=== PATIENT | male | born 1950 | race Caucasian/White ===

== ENCOUNTER 2018-07-29 05:20 | Inpatient (IN) ==
[2018-07-21 11:46] LABS: Basophils # 0.1 10*3/uL (0.0-0.2); Basophils % 0.9 % (0.0-0.8); Eosinophils # 1.1 10*3/uL (0.0-0.87); Hematocrit 43.4 VOL% (42.0-52.0); Hemoglobin 14.4 GM/DL (14.0-18.0); Immature Granulocytes % 0.3 %; Immature Granulocytes Absolute 0.02 #; Lymphocytes # 2.1 10*3/uL (1.4-4.0); Lymphocytes % 26.8 % (21.2-54.2); Mean Corpuscular HGB Conc 33.2 GM/DL (32-36); Mean Corpuscular Hemoglobin 31 PG (27-34); Mean Corpuscular Volume 93.9 FL (87-102); Mean Platelet Volume 10.3 FL (9.6-12.0); Monocytes # 0.6 10*3/uL (0.11-0.8); Monocytes % 7.7 % (1.7-12.7); Neutrophils # 3.9 10*3/uL (1.4-7.4); Neutrophils % 50.3 % (38.7-73.9); Platelet Count 178 T/CUMM (130-400); Red Blood Count 4.62 MC/CUMM (3.8-5.5); Red Cell Distribution Width 12.3 % (9.3-17.3); White Blood Count 7.7 T/CUMM (4-12)
[2018-07-21 11:54] LABS: PT Patient Result 10.7 SECS; Partial Thromboplastin Time 28.9 SECS (0-40)
[2018-07-21 12:09] LABS: Eosinophils 17 % (0-10); Hypochromasia 1+; Lymphocytes 24 % (20-55); Platelet Estimate Normal; Segmented Neutrophils 55 % (50-85); Total Cells Counted 100
[2018-07-21 12:35] LABS: Apearance,Urine CLEAR (Clear); Bilirubin,Urine Negative (Negative); Blood, Urine Negative (Negative); Glucose,Urine (UA) 150 mg/dL (Negative); Ketones,Urine Negative (Negative); Mucus,Urine Occasional /LPF (Occasional); Nitrite,Urine Negative (Negative); Protein,Urine Negative; RBC,Urine 1 /HPF (0-4); Urine Color Yellow (Yellow); Urine Urobilinogen < 2.0 EU/DL (0.2-1.0); WBC,Urine 2 /HPF (0-6)
[2018-07-21 13:34] LABS: Albumin 3.9 G/DL (3.4-5.0); Bilirubin,Total 0.5 MG/DL (0.2-1.0); Calcium 9.1 MG/DL (8.5-10.1); Osmolality,Calculated 281.4 MOS/KG (273-304); Potassium 4.2 MMOL/L (3.5-5.1); Total Protein 7.5 G/DL (6.4-8.3)
[2018-07-29] MEDS ORDERED: ceFAZolin 1,000 MG in SYRINGE 1 EACH IV ONE (06:00)
[2018-07-29] MEDS ORDERED: VANCOMYCIN INJ 1,000 MG in SODIUM CHLORIDE 0.9% 250 ML IV ONE (06:00)
[2018-07-29] MEDS ORDERED: ROPIVACAINE 0.5% 30 ML VIAL ONE (06:02)
[2018-07-29] MEDS ORDERED: DEXAMETHASONE 10 MG/1 ML VIAL ONE (06:02)
[2018-07-29] MEDS ORDERED: VANCOMYCIN 1,000 MG VIAL ONE (06:19)
[2018-07-29] MEDS ORDERED: ceFAZolin 1,000 MG VIAL ONE (06:19)
[2018-07-29] MEDS: LACTATED RINGERS 1,000 ML IV SCH ×2 (06:32→09:30)
[2018-07-29] MEDS ORDERED: MAGNESIUM HYDROXIDE SUSP 30 ML UDCUP PO PRN (07:23)
[2018-07-29] MEDS ORDERED: LACTULOSE 20 GM/30 ML UDCUP PO PRN (07:23)
[2018-07-29] MEDS ORDERED: MORPHINE 4 MG/1 ML VIAL IV PRN ×2 (07:23→10:40)
[2018-07-29] MEDS ORDERED: PROMETHAZINE 25 MG/1 ML VIAL IM PRN (07:23)
[2018-07-29] MEDS ORDERED: ONDANSETRON 4 MG/2 ML VIAL IV PRN (07:23)
[2018-07-29] MEDS ORDERED: NITROGLYCERIN SL 0.4 MG TABLET SL PRN (07:26)
[2018-07-29] MEDS ORDERED: DEXTROSE 50% 25 GM/50 ML VIAL IV PRN (07:27)
[2018-07-29] MEDS ORDERED: GLUCAGON 1 MG VIAL IM PRN (07:27)
[2018-07-29] MEDS ORDERED: PHENYLEPHRINE 10 MG/1 ML VIAL IV ONE (09:59)
[2018-07-29] MEDS ORDERED: DESFLURANE 1 UNIT/15 MINUTE INH ONE (09:59)
[2018-07-29] MEDS ORDERED: ROCURONIUM 100 MG/10 ML VIAL IV ONE (09:59)
[2018-07-29] MEDS ORDERED: PHENYLEPHRINE 1 MG/10 ML SYRINGE IV ONE (09:59)
[2018-07-29] MEDS ORDERED: NEOSTIGMINE 10 MG/10 ML VIAL ONE (09:59)
[2018-07-29] MEDS ORDERED: PROPOFOL 200 MG/20 ML VIAL IV ONE (09:59)
[2018-07-29] MEDS ORDERED: ONDANSETRON 4 MG/2 ML VIAL ONE (09:59)
[2018-07-29] MEDS ORDERED: MIDAZOLAM 2 MG/2 ML VIAL ONE (09:59)
[2018-07-29] MEDS ORDERED: GLYCOPYRROLATE 0.4 MG/2 ML VIAL ONE (09:59)
[2018-07-29] MEDS ORDERED: fentaNYL 100 MCG/2 ML VIAL ONE (09:59)
[2018-07-29] MEDS ORDERED: SODIUM CHLORIDE 0.9% 250 ML IV ONE (09:59)
[2018-07-29] MEDS: INSULIN REGULAR 100 UNIT/ML SUBCUT SCH ×4 (10:45→20:40)
[2018-07-29] MEDS: ASPIRIN EC 81 MG TABLET PO SCH (10:46)
[2018-07-29] MEDS: MORPHINE ER 15 MG TABLET PO SCH ×2 (10:46→20:39)
[2018-07-29] MEDS: MELOXICAM 7.5 MG TABLET PO SCH (10:46)
[2018-07-29] MEDS: ISOSORBIDE MONONITRATE 60 MG TABLET PO SCH (10:46)
[2018-07-29] MEDS: BACLOFEN 10 MG TABLET PO SCH ×2 (10:46→20:39)
[2018-07-29] MEDS: amLODIPine 5 MG TABLET PO SCH (10:47)
[2018-07-29] MEDS: METOPROLOL SUCCINATE XL 50 MG TABLET PO SCH ×2 (10:47→20:39)
[2018-07-29] MEDS: GABAPENTIN 300 MG CAPSULE PO SCH ×2 (10:47→20:38)
[2018-07-29] MEDS: ceFAZolin 1,000 MG in SYRINGE 1 EACH IV SCH (17:10)
[2018-07-29] MEDS ORDERED: ZALEPLON 5 MG CAPSULE PO SCH (21:00)
[2018-07-29] MEDS ORDERED: CETIRIZINE 10 MG TABLET PO SCH (21:00)
[2018-07-29] MEDS ORDERED: DULoxetine 30 MG CAPSULE PO SCH (21:00)
[2018-07-29] MEDS ORDERED: ATORVASTATIN 40 MG TABLET PO SCH (21:00)
[2018-07-30] MEDS: ceFAZolin 1,000 MG in SYRINGE 1 EACH IV SCH (01:20)
[2018-07-30] MEDS ORDERED: ceFAZolin 1,000 MG in SYRINGE 1 EACH IV SCH (01:45)
[2018-07-30] MEDS: MORPHINE ER 15 MG TABLET PO SCH (09:36)
[2018-07-30] MEDS: MELOXICAM 7.5 MG TABLET PO SCH (09:37)
[2018-07-30] MEDS: ISOSORBIDE MONONITRATE 60 MG TABLET PO SCH (09:37)
[2018-07-30] MEDS: METOPROLOL SUCCINATE XL 50 MG TABLET PO SCH (09:37)
[2018-07-30] MEDS: GABAPENTIN 300 MG CAPSULE PO SCH (09:38)
[2018-07-30] MEDS: ASPIRIN EC 81 MG TABLET PO SCH (09:38)
[2018-07-30] MEDS: BACLOFEN 10 MG TABLET PO SCH (09:38)
[2018-07-30] MEDS: amLODIPine 5 MG TABLET PO SCH (09:39)
[2018-07-30] MEDS: INSULIN REGULAR 100 UNIT/ML SUBCUT SCH ×2 (09:40→12:36)
[2018-07-30 10:59] VITALS: BP 158/86
== END 2018-07-30 12:25 | disposition home or self-care (01) | DRG 483 ==
LOC: N.SDSINP 05:20 → N.3E 10:23
PROVIDERS: ADMIT Orthopaedic Surgery; ATTEND Orthopaedic Surgery

== ENCOUNTER 2019-04-26 08:33 | Inpatient (IN) ==
[~2019-04-26 08:33] MED LIST: CEFUROXIME INJ 1,500 MG in SYRINGE 1 EACH IV ONE; DEXTROSE 10% 25 GM/250 ML BAG IV PRN; GLUCAGON 1 MG VIAL IM PRN; NITROGLYCERIN SL 0.4 MG TABLET SL PRN; SODIUM CHLORIDE 0.9% 1,000 ML IV SCH
[2019-04-26] MEDS ORDERED: CHLORHEXIDINE 4% SOLN 118 ML BOTTLE TOP SCH (09:00)
[2019-04-26 09:40] LABS: Basophils # 0.1 10*3/uL (0.0-0.2); Basophils % 0.8 % (0.0-0.8); Eosinophils % 12.4 % (0.00-10.9); Hematocrit 43.5 VOL% (42.0-52.0); Hemoglobin 14.4 GM/DL (14.0-18.0); Immature Granulocytes % 0.5 %; Immature Granulocytes Absolute 0.04 #; Lymphocytes # 1.8 10*3/uL (1.4-4.0); Lymphocytes % 23.3 % (21.2-54.2); Mean Corpuscular HGB Conc 33.1 GM/DL (32-36); Mean Corpuscular Volume 93.1 FL (87-102); Mean Platelet Volume 10.3 FL (9.6-12.0); Monocytes % 9.5 % (1.7-12.7); Neutrophils % 53.5 % (38.7-73.9); Platelet Count 169 T/CUMM (130-400); Red Blood Count 4.67 MC/CUMM (3.8-5.5); White Blood Count 7.9 T/CUMM (4-12)
[2019-04-26 10:10] LABS: Albumin 3.7 G/DL (3.4-5.0); Bilirubin,Total 0.8 MG/DL (0.2-1.0); Calcium 9.2 MG/DL (8.5-10.1); Osmolality,Calculated 288.3 MOS/KG (273-304); Total Protein 7.3 G/DL (6.4-8.3)
[2019-04-26] MEDS: ASPIRIN EC 81 MG TABLET PO SCH (10:17)
[2019-04-26] MEDS: ISOSORBIDE MONONITRATE 60 MG TABLET PO SCH (10:17)
[2019-04-26] MEDS: BACLOFEN 10 MG TABLET PO SCH ×2 (10:18→21:26)
[2019-04-26] MEDS: MORPHINE ER 15 MG TABLET PO SCH ×2 (10:18→21:25)
[2019-04-26] MEDS: MELOXICAM 7.5 MG TABLET PO SCH (10:18)
[2019-04-26] MEDS: GABAPENTIN 300 MG CAPSULE PO SCH ×2 (10:18→21:27)
[2019-04-26] MEDS: amLODIPine 5 MG TABLET PO SCH (10:18)
[2019-04-26] MEDS: METOPROLOL SUCCINATE XL 50 MG TABLET PO SCH ×2 (10:19→21:27)
[2019-04-26 10:29] LABS: Eosinophils 14 % (0-10); Lymphocytes 13 % (20-55)
[2019-04-26 10:30] LABS: Ovalocytes Few; Polychromasia Slight; Segmented Neutrophils 67 % (50-85); Total Cells Counted 100
[2019-04-26 10:31] LABS: Platelet Estimate Adequate
[2019-04-26] MEDS: CHLORHEXIDINE 0.12% ORAL RINSE 60 ML BOTTLE SWISH/SPIT SCH ×2 (10:53→21:27)
[2019-04-26 11:06] LABS: Allen Test Positive; Pt O2 Delivery Device Room Air
[2019-04-26 11:07] LABS: ABG Base Excess -0.1 MMOL/L (-2.5-2.5); ABG HCO3 24.2 MMOL/L (20-26); ABG Oxygen Saturation 92.6 % (95-100); ABG PCO2 44.8 MM HG (35-48); ABG PH 7.366 (7.35-7.45); ABG PO2 65.2 MM HG (80-95); ABG TCO2 22.2 MMOL/L (23-27)
[2019-04-26] MEDS: CHLORHEXIDINE 4% SOLN 118 ML BOTTLE TOP SCH ×2 (11:20→21:28)
[2019-04-26] MEDS: INSULIN REGULAR 100 UNIT/ML SUBCUT SCH ×3 (12:01→21:27)
[2019-04-26] MEDS ORDERED: ATORVASTATIN 40 MG TABLET PO SCH (21:00)
[2019-04-26] MEDS ORDERED: CETIRIZINE 10 MG TABLET PO SCH (21:00)
[2019-04-26] MEDS ORDERED: DULoxetine 30 MG CAPSULE PO SCH (21:00)
[2019-04-26] MEDS ORDERED: ZALEPLON 5 MG CAPSULE PO SCH (21:00)
[2019-04-27] MEDS ORDERED: PAPAVERINE 60 MG/2 ML VIAL ONE (04:20)
[2019-04-27] MEDS ORDERED: VANCOMYCIN 1,000 MG VIAL ONE (04:21)
[2019-04-27] MEDS: CHLORHEXIDINE 4% SOLN 118 ML BOTTLE TOP SCH ×2 (05:20→12:01)
[2019-04-27] MEDS: amLODIPine 5 MG TABLET PO SCH ×2 (05:32→13:33)
[2019-04-27] MEDS: METOPROLOL SUCCINATE XL 50 MG TABLET PO SCH ×2 (05:33→13:33)
[2019-04-27] MEDS: ISOSORBIDE MONONITRATE 60 MG TABLET PO SCH ×2 (05:33→13:32)
[2019-04-27] MEDS ORDERED: HEPARIN/NACL 0.9% 2 UNITS/ML 500 ML IV ONE (05:38)
[2019-04-27] MEDS ORDERED: CALCIUM CHLORIDE 1,000 MG/10 ML VIAL IV ONE (05:38)
[2019-04-27] MEDS ORDERED: PHENYLEPHRINE DRIP 20 MG/250 ML PREMIX IV ONE (05:38)
[2019-04-27] MEDS ORDERED: SUFentanil 250 MCG/5 ML AMP ONE (05:39)
[2019-04-27] MEDS ORDERED: ePHEDrine 50 MG/ML AMP ONE (05:39)
[2019-04-27] MEDS ORDERED: MIDAZOLAM 10 MG/2 ML VIAL ONE ×2 (05:39)
[2019-04-27] MEDS ORDERED: ETOMIDATE 40 MG/20 ML VIAL IV ONE (05:40)
[2019-04-27] MEDS ORDERED: VECURONIUM 10 MG VIAL IV ONE (05:40)
[2019-04-27] MEDS ORDERED: SODIUM CHLORIDE 0.9% 250 ML IV ONE (05:40)
[2019-04-27] MEDS ORDERED: AMINOCAPROIC ACID 5,000 MG/20 ML VIAL ONE (05:40)
[2019-04-27] MEDS ORDERED: NITROGLYCERIN DRIP 0 MG/0 ML BOTTLE IV ONE (05:40)
[2019-04-27] MEDS ORDERED: SODIUM CHLORIDE 0.9% 1,000 ML IV ONE (05:40)
[2019-04-27] MEDS ORDERED: LACTATED RINGERS 1,000 ML IV ONE (05:40)
[2019-04-27] MEDS ORDERED: DIAZEPAM 5 MG TABLET PO ONE (06:00)
[2019-04-27] MEDS ORDERED: SODIUM CHLORIDE 0.9% 1,000 ML IV SCH (06:00)
[2019-04-27] MEDS ORDERED: FAMOTIDINE 20 MG TABLET PO ONE (06:00)
[2019-04-27 06:07] LABS: Basophils # 0.1 10*3/uL (0.0-0.2); Basophils % 0.8 % (0.0-0.8); Eosinophils # 0.8 10*3/uL (0.0-0.87); Eosinophils % 10.8 % (0.00-10.9); Hematocrit 43.5 VOL% (42.0-52.0); Hemoglobin 14.5 GM/DL (14.0-18.0); Immature Granulocytes % 0.4 %; Immature Granulocytes Absolute 0.03 #; Lymphocytes # 1.7 10*3/uL (1.4-4.0); Lymphocytes % 22.3 % (21.2-54.2); Mean Corpuscular HGB Conc 33.3 GM/DL (32-36); Mean Platelet Volume 10.1 FL (9.6-12.0); Monocytes % 9.5 % (1.7-12.7); Neutrophils % 56.2 % (38.7-73.9); Platelet Count 151 T/CUMM (130-400); Red Blood Count 4.73 MC/CUMM (3.8-5.5); Red Cell Distribution Width 12.9 % (9.3-17.3); White Blood Count 7.6 T/CUMM (4-12)
[2019-04-27 06:16] LABS: PT Patient Result 10.9 SECS
[2019-04-27] MEDS ORDERED: CEFUROXIME INJ 1,500 MG in SYRINGE 1 EACH IV ONE ×2 (06:30→10:00)
[2019-04-27 06:36] LABS: Albumin 3.5 G/DL (3.4-5.0); Bilirubin,Total 0.8 MG/DL (0.2-1.0); Calcium 8.9 MG/DL (8.5-10.1); Osmolality,Calculated 282.4 MOS/KG (273-304); Total Protein 7.1 G/DL (6.4-8.3)
[2019-04-27 07:47] LABS: ABG Base Excess -0.6 MMOL/L (-2.5-2.5); ABG Oxygen Saturation 99.8 % (95-100); ABG PCO2 42.1 MM HG (35-48); ABG PH 7.376 (7.35-7.45); ABG TCO2 21.3 MMOL/L (23-27); Glucose Heart Surgery 152 MG/DL (74-106); Hematocrit Heart Surgery 43.5 PERCENT (42-52); Hemoglobin Heart Surgery 14.2 G/DL (14.0-18.0); Ionized Calcium Arterial 1.15 MMOL/L (1.21-1.46); PCO2 Patient Temp Arterial 42.1 MMHG; PH Patient Temp Arterial 7.376; Patient Temperature 37 CELCIUS; Potassium Heart/CVR 3.9 MMOL/L (3.5-5.1); Sodium Heart/CVR 139 MMOL/L (135-145)
[2019-04-27 07:57] LABS: Eosinophils 11 % (0-10); Hypochromasia Slight; Lymphocytes 23 % (20-55); Segmented Neutrophils 59 % (50-85); Total Cells Counted 100
[2019-04-27 07:58] LABS: Microcytosis Slight; Platelet Estimate Adequate
[2019-04-27 08:13] LABS: Apearance,Urine Slightly Hazy (Clear); Bacteria,Urine Many /HPF (Few); Bilirubin,Urine Negative (Negative); Blood, Urine Moderate mg/dL (Negative); Glucose,Urine (UA) Negative (Negative); Ketones,Urine Negative (Negative); Mucus,Urine Occasional /LPF (Occasional); Nitrite,Urine Negative (Negative); Protein,Urine Negative; RBC,Urine 6 /HPF (0-4); Squamous Epithelial Cell,Urine Few /HPF (0-10); Urine Color Yellow (Yellow); Urine Specific Gravity 1.016 (1.001-1.035); Urine Urobilinogen < 2.0 EU/DL (0.2-1.0); WBC,Urine 62 /HPF (0-6)
[2019-04-27 09:14] LABS: Hematocrit Heart Surgery 31.5 PERCENT (42-52); Hemoglobin Heart Surgery 10.2 G/DL (14.0-18.0); PCO2 Patient Temp Venous 40.7 MM HG; PH Patient Temp Venous 7.418; PO2 Patient Temp Venous 39.4 MM HG; Potassium Heart/CVR 4.6 MMOL/L (3.5-5.1); VBG Base Excess 1.7 MEQ/L (0-4); VBG HCO3 25.7 MEQ/L (24-28); VBG Oxygen Saturation 82.6 %; VBG PCO2 44.9 MMHG (41-51); VBG PH 7.389; VBG PO2 45.3 MMHG (17-40)
[2019-04-27] MEDS ORDERED: NITROPRUSSIDE 50 MG/2 ML VIAL ONE ×2 (09:29→09:35)
[2019-04-27] MEDS ORDERED: PHENYLEPHRINE DRIP 40 MG/250 ML PREMIX IV ONE (09:29)
[2019-04-27] MEDS ORDERED: ALBUMIN 5% 12.5 GM/250 ML VIAL IV ONE (09:29)
[2019-04-27 09:45] LABS: Hematocrit Heart Surgery 39.1 PERCENT (42-52); Hemoglobin Heart Surgery 12.7 G/DL (14.0-18.0); PCO2 Patient Temp Venous 33.8 MM HG; PH Patient Temp Venous 7.463; PO2 Patient Temp Venous 40.7 MM HG; Potassium Heart/CVR 4.6 MMOL/L (3.5-5.1); VBG Base Excess 0.9 MEQ/L (0-4); VBG HCO3 24.9 MEQ/L (24-28); VBG PH 7.419; VBG PO2 50.1 MMHG (17-40)
[2019-04-27 10:22] LABS: Hematocrit Heart Surgery 35.3 PERCENT (42-52); Hemoglobin Heart Surgery 11.5 G/DL (14.0-18.0); PCO2 Patient Temp Venous 33.9 MM HG; PH Patient Temp Venous 7.456; PO2 Patient Temp Venous 38.3 MM HG; Potassium Heart/CVR 4.8 MMOL/L (3.5-5.1); VBG Base Excess 0.5 MEQ/L (0-4); VBG HCO3 24.5 MEQ/L (24-28); VBG Oxygen Saturation 80.3 %; VBG PCO2 35.6 MMHG (41-51); VBG PH 7.441
[2019-04-27] MEDS ORDERED: MANNITOL 100 GM/500 ML BAG IV ONE (10:46)
[2019-04-27] MEDS ORDERED: MAGNESIUM SULFATE 5 GM/10 ML VIAL IV ONE (10:47)
[2019-04-27] MEDS ORDERED: HEPARIN 10,000 UNIT/10 ML VIAL ONE ×2 (10:47→11:51)
[2019-04-27] MEDS ORDERED: methylPREDNISolone SOD SUC 1,000 MG/8 ML VIAL ONE (10:47)
[2019-04-27] MEDS ORDERED: SODIUM BICARBONATE 50 MEQ/50 ML VIAL IV ONE (10:47)
[2019-04-27] MEDS ORDERED: PROTAMINE SULFATE 250 MG/25 ML VIAL IV ONE (10:47)
[2019-04-27] MEDS ORDERED: FUROSEMIDE 20 MG/2 ML VIAL ONE (10:47)
[2019-04-27] MEDS ORDERED: ALBUMIN 25% 25 GM/100 ML VIAL IV ONE (10:47)
[2019-04-27] MEDS ORDERED: DEXTROSE 5% KCL 20 MEQ 20 MEQ/1,000 ML BAG IV ONE (10:47)
[2019-04-27] MEDS ORDERED: PROTAMINE SULFATE 50 MG/5 ML VIAL IV ONE ×2 (10:48→12:05)
[2019-04-27 10:59] LABS: ABG Base Excess -1.9 MMOL/L (-2.5-2.5); ABG HCO3 22.9 MMOL/L (20-26); ABG Oxygen Saturation 99.2 % (95-100); ABG PCO2 40.1 MM HG (35-48); ABG TCO2 20.6 MMOL/L (23-27); Glucose Heart Surgery 278 MG/DL (74-106); Hematocrit Heart Surgery 37.5 PERCENT (42-52); Hemoglobin Heart Surgery 12.2 G/DL (14.0-18.0); PCO2 Patient Temp Arterial 40.1 MMHG; Patient Temperature 37 CELCIUS; Potassium Heart/CVR 4.4 MMOL/L (3.5-5.1); Sodium Heart/CVR 133 MMOL/L (135-145)
[2019-04-27] MEDS: LACTATED RINGERS 1,000 ML IV PRN ×3 (11:40→19:07)
[2019-04-27] MEDS ORDERED: NITROGLYCERIN DRIP 50 MG/250 ML BOTTLE IV ONE (11:43)
[2019-04-27] MEDS ORDERED: INSULIN REGULAR 100 UNIT/ML IV ONE (11:53)
[2019-04-27] MEDS ORDERED: VECURONIUM 10 MG VIAL IV PRN ×2 (11:53)
[2019-04-27] MEDS ORDERED: ONDANSETRON 4 MG/2 ML VIAL IV PRN (11:53)
[2019-04-27] MEDS ORDERED: POTASSIUM CHLORIDE RIDER 10 MEQ in PREMIX 1 EACH IV PRN (11:53)
[2019-04-27] MEDS ORDERED: MAGNESIUM SULF RIDER 4 GM in PREMIX 1 EACH IV PRN (11:53)
[2019-04-27] MEDS ORDERED: NITROPRUSSIDE 100 MG in DEXTROSE 5% 250 ML IV PRN (11:53)
[2019-04-27] MEDS ORDERED: INSULIN REGULAR 100 UNIT/ML IV PRN (11:53)
[2019-04-27] MEDS ORDERED: MIDAZOLAM 2 MG/2 ML VIAL IV PRN (11:53)
[2019-04-27] MEDS ORDERED: ACETAMINOPHEN 650 MG SUPP RECTAL PRN (11:53)
[2019-04-27] MEDS ORDERED: MAGNESIUM SULF RIDER 2 GM in PREMIX 1 EACH IV PRN (11:53)
[2019-04-27] MEDS ORDERED: LACTATED RINGERS 250 ML IV PRN (11:53)
[2019-04-27] MEDS ORDERED: MIDAZOLAM 10 MG/2 ML VIAL IV PRN (11:53)
[2019-04-27] MEDS ORDERED: PHENYLEPHRINE DRIP 40 MG/250 ML PREMIX IV PRN (11:53)
[2019-04-27] MEDS ORDERED: DEXTROSE 50% 25 GM/50 ML VIAL IV PRN ×2 (11:53)
[2019-04-27] MEDS ORDERED: CALCIUM CHLORIDE 1,000 MG/10 ML SYRINGE IV PRN (11:53)
[2019-04-27] MEDS ORDERED: MORPHINE 10 MG/1 ML VIAL IV PRN (11:53)
[2019-04-27] MEDS ORDERED: INSULIN REGULAR DRIP 100 ML IV SCH (12:00)
[2019-04-27] MEDS ORDERED: SODIUM CHLORIDE 0.45% 1,000 ML IV SCH ×2 (12:00)
[2019-04-27 12:19] LABS: ABG Base Excess -3.2 MMOL/L (-2.5-2.5); ABG HCO3 21.8 MMOL/L (20-26); ABG Oxygen Saturation 98.6 % (95-100); ABG PCO2 46.5 MM HG (35-48); ABG TCO2 20.6 MMOL/L (23-27); Glucose Heart Surgery 255 MG/DL (74-106); Hematocrit Heart Surgery 41.7 PERCENT (42-52); Hemoglobin Heart Surgery 13.6 G/DL (14.0-18.0); Potassium Heart/CVR 3.6 MMOL/L (3.5-5.1)
[2019-04-27 12:21] LABS: Basophils % 0.2 % (0.0-0.8); Eosinophils # 0.1 10*3/uL (0.0-0.87); Hematocrit 37.9 VOL% (42.0-52.0); Hemoglobin 12.8 GM/DL (14.0-18.0); Immature Granulocytes % 0.4 %; Immature Granulocytes Absolute 0.04 #; Lymphocytes # 1.4 10*3/uL (1.4-4.0); Mean Corpuscular HGB Conc 33.8 GM/DL (32-36); Mean Corpuscular Volume 91.8 FL (87-102); Mean Platelet Volume 10.6 FL (9.6-12.0); Monocytes % 5.8 % (1.7-12.7); Neutrophils % 78.6 % (38.7-73.9); Platelet Count 121 T/CUMM (130-400); Red Blood Count 4.13 MC/CUMM (3.8-5.5); Red Cell Distribution Width 12.9 % (9.3-17.3); White Blood Count 9.9 T/CUMM (4-12)
[2019-04-27] MEDS: KETOROLAC 30 MG/1 ML VIAL IV SCH ×2 (12:22→19:01)
[2019-04-27 12:40] LABS: Albumin 2.7 G/DL (3.4-5.0); Bilirubin,Total 2.2 MG/DL (0.2-1.0); Calcium 8.2 MG/DL (8.5-10.1); Osmolality,Calculated 289.4 MOS/KG (273-304); Total Protein 5.1 G/DL (6.4-8.3)
[2019-04-27] MEDS: POTASSIUM CHLORIDE RIDER 20 MEQ in PREMIX 1 EACH IV PRN ×4 (12:45→21:28)
[2019-04-27 12:50] LABS: CKMB % 5.6 %
[2019-04-27 12:51] LABS: Troponin I 4.11 NG/ML (0.00-0.045)
[2019-04-27] MEDS: ALBUMIN 5% 12.5 GM in PREMIX 1 EACH IV PRN ×4 (12:52→21:25)
[2019-04-27 12:59] LABS: INR 1.5; PT Patient Result 16.6 SECS
[2019-04-27 13:14] LABS: ABG Base Excess -2.7 MMOL/L (-2.5-2.5); ABG HCO3 22.1 MMOL/L (20-26); ABG Oxygen Saturation 97.9 % (95-100); ABG PCO2 47.8 MM HG (35-48); ABG PH 7.309 (7.35-7.45); ABG TCO2 21.2 MMOL/L (23-27); Glucose Heart Surgery 227 MG/DL (74-106); Hematocrit Heart Surgery 40.2 PERCENT (42-52); Hemoglobin Heart Surgery 13.1 G/DL (14.0-18.0); Potassium Heart/CVR 3.4 MMOL/L (3.5-5.1)
[2019-04-27] MEDS: INSULIN REGULAR 100 UNIT/ML SUBCUT SCH ×2 (13:31→13:32)
[2019-04-27] MEDS: MORPHINE ER 15 MG TABLET PO SCH (13:32)
[2019-04-27] MEDS: ASPIRIN EC 81 MG TABLET PO SCH (13:32)
[2019-04-27] MEDS: BACLOFEN 10 MG TABLET PO SCH (13:32)
[2019-04-27] MEDS: MELOXICAM 7.5 MG TABLET PO SCH (13:32)
[2019-04-27] MEDS: CHLORHEXIDINE 0.12% ORAL RINSE 60 ML BOTTLE SWISH/SPIT SCH ×2 (13:33→21:29)
[2019-04-27] MEDS: GABAPENTIN 300 MG CAPSULE PO SCH (13:33)
[2019-04-27 14:15] LABS: ABG Base Excess -2.2 MMOL/L (-2.5-2.5); ABG HCO3 22.6 MMOL/L (20-26); ABG Oxygen Saturation 98.7 % (95-100); ABG PCO2 41.2 MM HG (35-48); ABG PH 7.358 (7.35-7.45); ABG TCO2 20.4 MMOL/L (23-27); Glucose Heart Surgery 193 MG/DL (74-106); Hematocrit Heart Surgery 39.6 PERCENT (42-52); Hemoglobin Heart Surgery 12.9 G/DL (14.0-18.0); Potassium Heart/CVR 4.5 MMOL/L (3.5-5.1)
[2019-04-27 15:17] LABS: ABG Base Excess -2.1 MMOL/L (-2.5-2.5); ABG HCO3 22.7 MMOL/L (20-26); ABG Oxygen Saturation 98.5 % (95-100); ABG PCO2 38.9 MM HG (35-48); ABG PH 7.376 (7.35-7.45); Glucose Heart Surgery 163 MG/DL (74-106)
[2019-04-27] MEDS ORDERED: SEVOFLURANE 1 UNIT/15 MINUTE INH ONE (15:26)
[2019-04-27 17:33] LABS: ABG Base Excess -2.1 MMOL/L (-2.5-2.5); ABG HCO3 22.6 MMOL/L (20-26); ABG Oxygen Saturation 96.6 % (95-100); ABG PCO2 38.1 MM HG (35-48); ABG PH 7.382 (7.35-7.45); ABG PO2 83.7 MM HG (80-95); Glucose Heart Surgery 178 MG/DL (74-106); Hematocrit Heart Surgery 37.7 PERCENT (42-52); Hemoglobin Heart Surgery 12.3 G/DL (14.0-18.0); Potassium Heart/CVR 4.2 MMOL/L (3.5-5.1)
[2019-04-27] MEDS ORDERED: FUROSEMIDE 40 MG/4 ML VIAL IV PRN (18:51)
[2019-04-27] MEDS: CEFUROXIME INJ 1,500 MG in SYRINGE 1 EACH IV SCH (20:07)
[2019-04-27 20:27] LABS: ABG Base Excess -2.2 MMOL/L (-2.5-2.5); ABG HCO3 22.6 MMOL/L (20-26); ABG Oxygen Saturation 96.1 % (95-100); ABG PCO2 37.2 MM HG (35-48); ABG PH 7.388 (7.35-7.45); ABG PO2 78.4 MM HG (80-95); ABG TCO2 20.2 MMOL/L (23-27); Glucose Heart Surgery 169 MG/DL (74-106); Hematocrit Heart Surgery 33.6 PERCENT (42-52); Hemoglobin Heart Surgery 10.9 G/DL (14.0-18.0); Potassium Heart/CVR 4.2 MMOL/L (3.5-5.1)
[2019-04-27 20:52] LABS: CKMB % 3.9 %
[2019-04-27] MEDS: MORPHINE 4 MG/1 ML VIAL IV PRN (20:53)
[2019-04-27 20:56] LABS: Troponin I 1.73 NG/ML (0.00-0.045)
[2019-04-28 00:22] LABS: ABG HCO3 22.7 MMOL/L (20-26); ABG Oxygen Saturation 95.5 % (95-100); ABG PCO2 34.7 MM HG (35-48); ABG PH 7.434 (7.35-7.45); ABG PO2 79.2 MM HG (80-95); ABG TCO2 23.8 MMOL/L (23-27); Glucose Heart Surgery 156 MG/DL (74-106); Hemoglobin Heart Surgery 11.7 G/DL (14.0-18.0); Potassium Heart/CVR 4.5 MMOL/L (3.5-5.1)
[2019-04-28] MEDS: KETOROLAC 30 MG/1 ML VIAL IV SCH ×5 (01:07→22:42)
[2019-04-28 01:18] LABS: ABG Base Excess 0.3 MMOL/L (-2.5-2.5); ABG HCO3 24.7 MMOL/L (20-26); ABG Oxygen Saturation 96.8 % (95-100); ABG PCO2 32.9 MM HG (35-48); ABG PH 7.462 (7.35-7.45); ABG PO2 75.5 MM HG (80-95); ABG TCO2 20.9 MMOL/L (23-27); Glucose Heart Surgery 159 MG/DL (74-106); Hematocrit Heart Surgery 34.8 PERCENT (42-52); Hemoglobin Heart Surgery 11.3 G/DL (14.0-18.0); Potassium Heart/CVR 4.3 MMOL/L (3.5-5.1)
[2019-04-28] MEDS: MORPHINE 4 MG/1 ML VIAL IV PRN (01:18)
[2019-04-28 01:59] LABS: ABG Base Excess -0.3 MMOL/L (-2.5-2.5); ABG HCO3 24.1 MMOL/L (20-26); ABG Oxygen Saturation 97.1 % (95-100); ABG PCO2 33.6 MM HG (35-48); ABG PH 7.445 (7.35-7.45); ABG PO2 79.9 MM HG (80-95); ABG TCO2 20.5 MMOL/L (23-27); Glucose Heart Surgery 155 MG/DL (74-106); Hematocrit Heart Surgery 35.7 PERCENT (42-52); Hemoglobin Heart Surgery 11.6 G/DL (14.0-18.0); Potassium Heart/CVR 4.1 MMOL/L (3.5-5.1)
[2019-04-28 03:52] LABS: ABG Base Excess 0.9 MMOL/L (-2.5-2.5); ABG HCO3 25.2 MMOL/L (20-26); ABG Oxygen Saturation 95.2 % (95-100); ABG PCO2 40.7 MM HG (35-48); ABG PH 7.407 (7.35-7.45); ABG PO2 71.2 MM HG (80-95); ABG TCO2 22.9 MMOL/L (23-27); Glucose Heart Surgery 144 MG/DL (74-106); Hematocrit Heart Surgery 35.4 PERCENT (42-52); Hemoglobin Heart Surgery 11.5 G/DL (14.0-18.0); Potassium Heart/CVR 4.1 MMOL/L (3.5-5.1)
[2019-04-28 03:55] LABS: Basophils # 0.1 10*3/uL (0.0-0.2); Basophils % 0.3 % (0.0-0.8); Eosinophils % 0.1 % (0.00-10.9); Hematocrit 32.9 VOL% (42.0-52.0); Immature Granulocytes % 0.4 %; Immature Granulocytes Absolute 0.08 #; Lymphocytes # 1.4 10*3/uL (1.4-4.0); Lymphocytes % 7.4 % (21.2-54.2); Mean Corpuscular HGB Conc 33.4 GM/DL (32-36); Mean Corpuscular Volume 92.9 FL (87-102); Mean Platelet Volume 11.2 FL (9.6-12.0); Monocytes % 5.5 % (1.7-12.7); Neutrophils % 86.3 % (38.7-73.9); Platelet Count 95 T/CUMM (130-400); Red Blood Count 3.54 MC/CUMM (3.8-5.5); Red Cell Distribution Width 13.2 % (9.3-17.3); White Blood Count 18.4 T/CUMM (4-12)
[2019-04-28 04:16] LABS: Albumin 3.3 G/DL (3.4-5.0); Bilirubin,Direct 0.32 MG/DL (0.0-0.20); Bilirubin,Total 1.3 MG/DL (0.2-1.0); CKMB % 2.3 %; Calcium 8.1 MG/DL (8.5-10.1); Osmolality,Calculated 289.8 MOS/KG (273-304); Total Protein 5.8 G/DL (6.4-8.3)
[2019-04-28 04:17] LABS: Troponin I 1.5 NG/ML (0.00-0.045)
[2019-04-28] MEDS: POTASSIUM CHLORIDE RIDER 20 MEQ in PREMIX 1 EACH IV PRN (05:06)
[2019-04-28 05:21] LABS: Microcytosis Slight; Platelet Estimate Decreased
[2019-04-28 06:10] LABS: ABG Base Excess 1.5 MMOL/L (-2.5-2.5); ABG HCO3 25.9 MMOL/L (20-26); ABG Oxygen Saturation 92.9 % (95-100); ABG PCO2 40.3 MM HG (35-48); ABG PH 7.426 (7.35-7.45); ABG PO2 67.2 MM HG (80-95); ABG TCO2 27.1 MMOL/L (23-27); Glucose Heart Surgery 140 MG/DL (74-106); Hemoglobin Heart Surgery 12.3 G/DL (14.0-18.0); Potassium Heart/CVR 4.3 MMOL/L (3.5-5.1)
[2019-04-28 08:24] LABS: ABG Base Excess 0.8 MMOL/L (-2.5-2.5); ABG HCO3 25.1 MMOL/L (20-26); ABG Oxygen Saturation 95.9 % (95-100); ABG PCO2 38.8 MM HG (35-48); ABG PO2 77.3 MM HG (80-95); ABG TCO2 22.4 MMOL/L (23-27); Glucose Heart Surgery 146 MG/DL (74-106); Hematocrit Heart Surgery 35.8 PERCENT (42-52); Hemoglobin Heart Surgery 11.6 G/DL (14.0-18.0); Potassium Heart/CVR 4.1 MMOL/L (3.5-5.1)
[2019-04-28] MEDS: CEFUROXIME INJ 1,500 MG in SYRINGE 1 EACH IV SCH (08:35)
[2019-04-28] MEDS: ISOSORBIDE MONONITRATE 60 MG TABLET PO SCH (08:47)
[2019-04-28] MEDS: METOPROLOL SUCCINATE XL 50 MG TABLET PO SCH ×2 (08:47→21:10)
[2019-04-28] MEDS: GABAPENTIN 300 MG CAPSULE PO SCH ×2 (08:47→21:10)
[2019-04-28] MEDS: ASPIRIN EC 81 MG TABLET PO SCH (08:47)
[2019-04-28] MEDS: BACLOFEN 10 MG TABLET PO SCH ×2 (08:47→21:10)
[2019-04-28] MEDS: MELOXICAM 7.5 MG TABLET PO SCH (08:47)
[2019-04-28] MEDS: CHLORHEXIDINE 0.12% ORAL RINSE 60 ML BOTTLE SWISH/SPIT SCH ×3 (09:24→21:06)
[2019-04-28] MEDS ORDERED: SODIUM CHLOR 0.45% KCL 20 MEQ 20 MEQ/1,000 ML BAG IV SCH (10:18)
[2019-04-28] MEDS ORDERED: oxyCODONE/ACETAMINOPHEN 5-325 MG TABLET PO PRN (10:18)
[2019-04-28] MEDS ORDERED: MORPHINE 4 MG/1 ML VIAL IV PRN (10:18)
[2019-04-28] MEDS ORDERED: ACETAMINOPHEN 325 MG TABLET PO PRN (10:18)
[2019-04-28] MEDS ORDERED: GLUCAGON 1 MG VIAL IM PRN ×2 (10:18)
[2019-04-28] MEDS ORDERED: DEXTROSE 50% 25 GM/50 ML VIAL IV PRN ×2 (10:18)
[2019-04-28] MEDS ORDERED: ONDANSETRON 4 MG/2 ML VIAL IV PRN (10:18)
[2019-04-28] MEDS ORDERED: ALUMINUM/MAGNES/SIMETH MAX STR 30 ML UDCUP PO PRN (10:18)
[2019-04-28] MEDS ORDERED: MAGNESIUM SULF RIDER 4 GM in PREMIX 1 EACH IV PRN (10:18)
[2019-04-28] MEDS ORDERED: MAGNESIUM HYDROXIDE SUSP 30 ML UDCUP PO PRN (10:18)
[2019-04-28] MEDS ORDERED: MAGNESIUM SULF RIDER 2 GM in PREMIX 1 EACH IV PRN (10:18)
[2019-04-28] MEDS: LEVOFLOXACIN 500 MG TABLET PO SCH (11:28)
[2019-04-28] MEDS: FERROUS SULFATE 325 MG TABLET PO SCH (11:29)
[2019-04-28] MEDS: DOCUSATE SODIUM 100 MG CAPSULE PO SCH (11:29)
[2019-04-28] MEDS: PANTOPRAZOLE 40 MG TABLET PO SCH (11:29)
[2019-04-28] MEDS: INSULIN REGULAR 100 UNIT/ML SUBCUT SCH ×3 (12:51→21:03)
[2019-04-28] MEDS: DULoxetine 30 MG CAPSULE PO SCH (21:07)
[2019-04-28] MEDS: CETIRIZINE 10 MG TABLET PO SCH (21:09)
[2019-04-28] MEDS: ATORVASTATIN 40 MG TABLET PO SCH (21:09)
[2019-04-29] MEDS: INSULIN REGULAR 100 UNIT/ML SUBCUT SCH ×6 (00:34→22:03)
[2019-04-29] MEDS: KETOROLAC 30 MG/1 ML VIAL IV SCH ×4 (04:37→22:01)
[2019-04-29 04:47] LABS: Basophils % 0.1 % (0.0-0.8); Eosinophils % 0.1 % (0.00-10.9); Hematocrit 29.8 VOL% (42.0-52.0); Hemoglobin 10.1 GM/DL (14.0-18.0); Immature Granulocytes % 0.7 %; Immature Granulocytes Absolute 0.12 #; Lymphocytes # 2.1 10*3/uL (1.4-4.0); Lymphocytes % 11.4 % (21.2-54.2); Mean Corpuscular HGB Conc 33.9 GM/DL (32-36); Mean Corpuscular Volume 93.7 FL (87-102); Mean Platelet Volume 12.3 FL (9.6-12.0); Neutrophils % 77.7 % (38.7-73.9); Platelet Count 88 T/CUMM (130-400); Red Blood Count 3.18 MC/CUMM (3.8-5.5); Red Cell Distribution Width 13.4 % (9.3-17.3); White Blood Count 18.3 T/CUMM (4-12)
[2019-04-29 05:13] LABS: Calcium 8.4 MG/DL (8.5-10.1); Osmolality,Calculated 296.1 MOS/KG (273-304)
[2019-04-29 05:19] LABS: Albumin 3.1 G/DL (3.4-5.0); Bilirubin,Direct 0.15 MG/DL (0.0-0.20); Bilirubin,Indirect 0.7 MG/DL (0.0-1.0); Bilirubin,Total 0.8 MG/DL (0.2-1.0); CKMB % 0.6 %; Calcium 8.2 MG/DL (8.5-10.1); Osmolality,Calculated 294.3 MOS/KG (273-304); Total Protein 5.8 G/DL (6.4-8.3)
[2019-04-29 05:21] LABS: Troponin I 1.07 NG/ML (0.00-0.045)
[2019-04-29 06:00] LABS: Anisocytosis Slight; Lymphocytes 9 % (20-55); Segmented Neutrophils 84 % (50-85); Total Cells Counted 100
[2019-04-29] MEDS ORDERED: FUROSEMIDE 40 MG/4 ML VIAL IV ONE (06:00)
[2019-04-29 06:01] LABS: Microcytosis 1+; Platelet Estimate Decreased
[2019-04-29] MEDS: BACLOFEN 10 MG TABLET PO SCH ×2 (09:41→22:03)
[2019-04-29] MEDS: ASPIRIN EC 81 MG TABLET PO SCH (09:41)
[2019-04-29] MEDS: DOCUSATE SODIUM 100 MG CAPSULE PO SCH (09:41)
[2019-04-29] MEDS: GABAPENTIN 300 MG CAPSULE PO SCH ×2 (09:41→22:02)
[2019-04-29] MEDS: PANTOPRAZOLE 40 MG TABLET PO SCH (09:41)
[2019-04-29] MEDS: MORPHINE ER 15 MG TABLET PO SCH (09:41)
[2019-04-29] MEDS: ISOSORBIDE MONONITRATE 60 MG TABLET PO SCH (09:41)
[2019-04-29] MEDS: CHLORHEXIDINE 0.12% ORAL RINSE 60 ML BOTTLE SWISH/SPIT SCH ×2 (09:41→22:04)
[2019-04-29] MEDS: FERROUS SULFATE 325 MG TABLET PO SCH (09:41)
[2019-04-29] MEDS: MELOXICAM 7.5 MG TABLET PO SCH (09:41)
[2019-04-29] MEDS: METOPROLOL SUCCINATE XL 50 MG TABLET PO SCH ×2 (09:41→21:42)
[2019-04-29] MEDS: LEVOFLOXACIN 500 MG TABLET PO SCH (10:29)
[2019-04-29] MEDS ORDERED: amLODIPine 5 MG TABLET PO ONE (13:33)
[2019-04-29] MEDS ORDERED: HYDROmorphone 2 MG/1 ML VIAL IV PRN (17:53)
[2019-04-29] MEDS: DULoxetine 30 MG CAPSULE PO SCH (22:02)
[2019-04-29] MEDS: CETIRIZINE 10 MG TABLET PO SCH (22:03)
[2019-04-29] MEDS: ATORVASTATIN 40 MG TABLET PO SCH (22:03)
[2019-04-30] MEDS: INSULIN REGULAR 100 UNIT/ML SUBCUT SCH ×6 (00:46→21:30)
[2019-04-30] MEDS: KETOROLAC 30 MG/1 ML VIAL IV SCH ×4 (03:35→21:31)
[2019-04-30 04:32] LABS: Basophils % 0.2 % (0.0-0.8); Eosinophils # 0.3 10*3/uL (0.0-0.87); Eosinophils % 2.3 % (0.00-10.9); Hematocrit 26.2 VOL% (42.0-52.0); Hemoglobin 8.7 GM/DL (14.0-18.0); Immature Granulocytes % 0.8 %; Lymphocytes # 2.1 10*3/uL (1.4-4.0); Lymphocytes % 16.2 % (21.2-54.2); Mean Corpuscular HGB Conc 33.2 GM/DL (32-36); Mean Corpuscular Volume 95.3 FL (87-102); Mean Platelet Volume 11.7 FL (9.6-12.0); Monocytes % 9.5 % (1.7-12.7); Platelet Count 74 T/CUMM (130-400); Red Blood Count 2.75 MC/CUMM (3.8-5.5); Red Cell Distribution Width 13.5 % (9.3-17.3); White Blood Count 12.9 T/CUMM (4-12)
[2019-04-30 04:50] LABS: INR 1.1; PT Patient Result 11.5 SECS
[2019-04-30 04:57] LABS: Alanine Aminotransferase 34 U/L (16-61); Albumin 2.8 G/DL (3.4-5.0); Alkaline Phosphatase 53 U/L (45-117); Aspartate Amino Transferase 26 U/L (0-37); Bilirubin,Indirect 0.6 MG/DL (0.0-1.0); Blood Urea Nitrogen 39 MG/DL (7-18); Calcium 8.2 MG/DL (8.5-10.1); Glucose 104 MG/DL (74-106); Total Protein 5.5 G/DL (6.4-8.3)
[2019-04-30 05:01] LABS: Hypochromasia 1+; Platelet Estimate Decreased
[2019-04-30 05:02] LABS: Microcytosis Slight
[2019-04-30 05:07] LABS: Troponin I 0.508 NG/ML (0.00-0.045)
[2019-04-30] MEDS: POTASSIUM CHLORIDE 20 MEQ TABLET PO PRN (06:05)
[2019-04-30] MEDS ORDERED: amLODIPine 5 MG TABLET PO SCH (09:00)
[2019-04-30] MEDS: MORPHINE ER 15 MG TABLET PO SCH ×2 (09:16→21:31)
[2019-04-30] MEDS: MELOXICAM 7.5 MG TABLET PO SCH (09:17)
[2019-04-30] MEDS: ASPIRIN EC 81 MG TABLET PO SCH (09:17)
[2019-04-30] MEDS: GABAPENTIN 300 MG CAPSULE PO SCH ×2 (09:18→21:32)
[2019-04-30] MEDS: ISOSORBIDE MONONITRATE 60 MG TABLET PO SCH (09:18)
[2019-04-30] MEDS: PANTOPRAZOLE 40 MG TABLET PO SCH (09:19)
[2019-04-30] MEDS: DOCUSATE SODIUM 100 MG CAPSULE PO SCH (09:19)
[2019-04-30] MEDS: BACLOFEN 10 MG TABLET PO SCH ×2 (09:19→21:32)
[2019-04-30] MEDS: FERROUS SULFATE 325 MG TABLET PO SCH (09:20)
[2019-04-30] MEDS: SODIUM CHLORIDE 0.45% 1,000 ML IV SCH ×2 (09:20→18:05)
[2019-04-30] MEDS: CHLORHEXIDINE 0.12% ORAL RINSE 60 ML BOTTLE SWISH/SPIT SCH ×2 (09:42→21:32)
[2019-04-30] MEDS: LEVOFLOXACIN 500 MG TABLET PO SCH (10:38)
[2019-04-30] MEDS: DULoxetine 30 MG CAPSULE PO SCH (21:32)
[2019-04-30] MEDS: CETIRIZINE 10 MG TABLET PO SCH (21:32)
[2019-04-30] MEDS: ATORVASTATIN 40 MG TABLET PO SCH (21:32)
[2019-05-01] MEDS: SODIUM CHLORIDE 0.45% 1,000 ML IV SCH ×4 (00:36→18:42)
[2019-05-01] MEDS: ZALEPLON 5 MG CAPSULE PO PRN (00:40)
[2019-05-01] MEDS: KETOROLAC 30 MG/1 ML VIAL IV SCH (04:20)
[2019-05-01 05:52] LABS: Basophils % 0.4 % (0.0-0.8); Calcium 7.7 MG/DL (8.5-10.1); Eosinophils # 0.8 10*3/uL (0.0-0.87); Eosinophils % 8.5 % (0.00-10.9); Hematocrit 24.3 VOL% (42.0-52.0); Immature Granulocytes % 0.8 %; Immature Granulocytes Absolute 0.07 #; Mean Corpuscular HGB Conc 32.9 GM/DL (32-36); Mean Platelet Volume 11.6 FL (9.6-12.0); Monocytes % 9.8 % (1.7-12.7); Neutrophils % 58.5 % (38.7-73.9); Osmolality,Calculated 290.1 MOS/KG (273-304); Red Blood Count 2.53 MC/CUMM (3.8-5.5); Red Cell Distribution Width 13.3 % (9.3-17.3)
[2019-05-01 05:58] LABS: Platelet Count 80 T/CUMM (130-400)
[2019-05-01 06:39] LABS: Platelet Estimate Decreased; Polychromasia Few; Smudge Cells Few
[2019-05-01] MEDS: INSULIN REGULAR 100 UNIT/ML SUBCUT SCH ×4 (08:26→21:00)
[2019-05-01] MEDS: DOCUSATE SODIUM 100 MG CAPSULE PO SCH (08:27)
[2019-05-01] MEDS: FERROUS SULFATE 325 MG TABLET PO SCH (08:27)
[2019-05-01] MEDS: ASPIRIN EC 81 MG TABLET PO SCH (08:27)
[2019-05-01] MEDS: MORPHINE ER 15 MG TABLET PO SCH ×2 (08:28→21:03)
[2019-05-01] MEDS: PANTOPRAZOLE 40 MG TABLET PO SCH (08:28)
[2019-05-01] MEDS: GABAPENTIN 300 MG CAPSULE PO SCH ×2 (08:28→21:04)
[2019-05-01] MEDS: MELOXICAM 7.5 MG TABLET PO SCH (08:28)
[2019-05-01] MEDS: BACLOFEN 10 MG TABLET PO SCH ×2 (08:28→21:04)
[2019-05-01] MEDS: CHLORHEXIDINE 0.12% ORAL RINSE 60 ML BOTTLE SWISH/SPIT SCH ×2 (08:34→21:04)
[2019-05-01] MEDS: LEVOFLOXACIN 500 MG TABLET PO SCH (13:00)
[2019-05-01] MEDS: CETIRIZINE 10 MG TABLET PO SCH (21:04)
[2019-05-01] MEDS: ATORVASTATIN 40 MG TABLET PO SCH (21:04)
[2019-05-01] MEDS: DULoxetine 30 MG CAPSULE PO SCH (21:04)
[2019-05-02] MEDS: SODIUM CHLORIDE 0.45% 1,000 ML IV SCH (04:29)
[2019-05-02 05:28] LABS: Basophils # 0.1 10*3/uL (0.0-0.2); Basophils % 0.6 % (0.0-0.8); Eosinophils # 0.9 10*3/uL (0.0-0.87); Eosinophils % 10.2 % (0.00-10.9); Hemoglobin 8.1 GM/DL (14.0-18.0); Immature Granulocytes % 1.1 %; Lymphocytes # 1.9 10*3/uL (1.4-4.0); Lymphocytes % 21.3 % (21.2-54.2); Mean Corpuscular HGB Conc 32.4 GM/DL (32-36); Mean Corpuscular Volume 96.9 FL (87-102); Mean Platelet Volume 10.8 FL (9.6-12.0); Monocytes % 10.9 % (1.7-12.7); Neutrophils % 55.9 % (38.7-73.9); Platelet Count 106 T/CUMM (130-400); Red Blood Count 2.58 MC/CUMM (3.8-5.5); Red Cell Distribution Width 13.7 % (9.3-17.3); White Blood Count 8.8 T/CUMM (4-12)
[2019-05-02 05:56] LABS: Alanine Aminotransferase 24 U/L (16-61); Albumin 2.4 G/DL (3.4-5.0); Alkaline Phosphatase 58 U/L (45-117); Aspartate Amino Transferase 19 U/L (0-37); Bilirubin,Indirect 0.5 MG/DL (0.0-1.0); Blood Urea Nitrogen 20 MG/DL (7-18); Calcium 7.8 MG/DL (8.5-10.1); Glucose 118 MG/DL (74-106); Osmolality,Calculated 286.1 MOS/KG (273-304); Total Protein 5.4 G/DL (6.4-8.3)
[2019-05-02 06:17] LABS: Troponin I 0.166 NG/ML (0.00-0.045)
[2019-05-02] MEDS: MORPHINE ER 15 MG TABLET PO SCH ×2 (08:43→20:58)
[2019-05-02] MEDS: GABAPENTIN 300 MG CAPSULE PO SCH ×2 (08:44→20:59)
[2019-05-02] MEDS: ASPIRIN EC 81 MG TABLET PO SCH (08:44)
[2019-05-02] MEDS: MELOXICAM 7.5 MG TABLET PO SCH (08:44)
[2019-05-02] MEDS: FERROUS SULFATE 325 MG TABLET PO SCH (08:45)
[2019-05-02] MEDS: INSULIN REGULAR 100 UNIT/ML SUBCUT SCH ×4 (08:45→20:59)
[2019-05-02] MEDS: PANTOPRAZOLE 40 MG TABLET PO SCH (08:45)
[2019-05-02] MEDS: DOCUSATE SODIUM 100 MG CAPSULE PO SCH (08:45)
[2019-05-02] MEDS: BACLOFEN 10 MG TABLET PO SCH ×2 (08:45→20:58)
[2019-05-02] MEDS: CHLORHEXIDINE 0.12% ORAL RINSE 60 ML BOTTLE SWISH/SPIT SCH ×2 (08:45→20:59)
[2019-05-02] MEDS: HYDROCORTISONE 1% CREAM 28 GM TUBE TOP PRN ×2 (09:40→14:20)
[2019-05-02] MEDS: LEVOFLOXACIN 500 MG TABLET PO SCH (11:26)
[2019-05-02] MEDS ORDERED: FUROSEMIDE 40 MG/4 ML VIAL IV ONE (15:26)
[2019-05-02] MEDS: CETIRIZINE 10 MG TABLET PO SCH (20:58)
[2019-05-02] MEDS: DULoxetine 30 MG CAPSULE PO SCH (20:58)
[2019-05-02] MEDS: ATORVASTATIN 40 MG TABLET PO SCH (20:59)
[2019-05-02] MEDS: ZALEPLON 5 MG CAPSULE PO PRN (22:15)
[2019-05-03 05:26] LABS: Basophils % 0.3 % (0.0-0.8); Eosinophils # 0.9 10*3/uL (0.0-0.87); Eosinophils % 8.7 % (0.00-10.9); Hematocrit 27.8 VOL% (42.0-52.0); Hemoglobin 9.2 GM/DL (14.0-18.0); Immature Granulocytes % 1.4 %; Immature Granulocytes Absolute 0.15 #; Lymphocytes # 1.9 10*3/uL (1.4-4.0); Lymphocytes % 17.8 % (21.2-54.2); Mean Corpuscular HGB Conc 33.1 GM/DL (32-36); Mean Corpuscular Volume 96.2 FL (87-102); Mean Platelet Volume 10.5 FL (9.6-12.0); Neutrophils % 58.8 % (38.7-73.9); Platelet Count 143 T/CUMM (130-400); Red Blood Count 2.89 MC/CUMM (3.8-5.5); Red Cell Distribution Width 13.9 % (9.3-17.3); White Blood Count 10.5 T/CUMM (4-12)
[2019-05-03 05:43] LABS: Alanine Aminotransferase 22 U/L (16-61); Albumin 2.7 G/DL (3.4-5.0); Alkaline Phosphatase 66 U/L (45-117); Aspartate Amino Transferase 20 U/L (0-37); Bilirubin,Indirect 0.7 MG/DL (0.0-1.0); Blood Urea Nitrogen 17 MG/DL (7-18); Calcium 8.5 MG/DL (8.5-10.1); Glucose 151 MG/DL (74-106); Total Protein 6.1 G/DL (6.4-8.3)
[2019-05-03 05:44] LABS: Troponin I 0.103 NG/ML (0.00-0.045)
[2019-05-03] MEDS: INSULIN REGULAR 100 UNIT/ML SUBCUT SCH ×4 (08:30→20:58)
[2019-05-03] MEDS: MORPHINE ER 15 MG TABLET PO SCH ×2 (08:30→20:59)
[2019-05-03] MEDS: FERROUS SULFATE 325 MG TABLET PO SCH (08:30)
[2019-05-03] MEDS: METOPROLOL SUCCINATE XL 50 MG TABLET PO SCH (08:30)
[2019-05-03] MEDS: MELOXICAM 7.5 MG TABLET PO SCH (08:31)
[2019-05-03] MEDS: PANTOPRAZOLE 40 MG TABLET PO SCH (08:31)
[2019-05-03] MEDS: CHLORHEXIDINE 0.12% ORAL RINSE 60 ML BOTTLE SWISH/SPIT SCH ×2 (08:31→21:03)
[2019-05-03] MEDS: BACLOFEN 10 MG TABLET PO SCH ×2 (08:31→20:59)
[2019-05-03] MEDS: DOCUSATE SODIUM 100 MG CAPSULE PO SCH (08:31)
[2019-05-03] MEDS: amLODIPine 5 MG TABLET PO SCH (08:31)
[2019-05-03] MEDS: GABAPENTIN 300 MG CAPSULE PO SCH ×2 (08:31→20:59)
[2019-05-03] MEDS: ASPIRIN EC 81 MG TABLET PO SCH (08:31)
[2019-05-03] MEDS: LEVOFLOXACIN 500 MG TABLET PO SCH (10:24)
[2019-05-03] MEDS ORDERED: FUROSEMIDE 40 MG/4 ML VIAL IV ONE (13:57)
[2019-05-03] MEDS: POTASSIUM CHLORIDE 20 MEQ TABLET PO PRN ×2 (17:15→18:35)
[2019-05-03] MEDS: ATORVASTATIN 40 MG TABLET PO SCH (20:59)
[2019-05-03] MEDS: CETIRIZINE 10 MG TABLET PO SCH (20:59)
[2019-05-03] MEDS: DULoxetine 30 MG CAPSULE PO SCH (20:59)
[2019-05-04 05:38] LABS: Calcium 8.3 MG/DL (8.5-10.1); Osmolality,Calculated 286.1 MOS/KG (273-304)
[2019-05-04 08:30] VITALS: BP 110/70
[2019-05-04] MEDS: MELOXICAM 7.5 MG TABLET PO SCH (08:59)
[2019-05-04] MEDS: MORPHINE ER 15 MG TABLET PO SCH (08:59)
[2019-05-04] MEDS: METOPROLOL SUCCINATE XL 50 MG TABLET PO SCH (08:59)
[2019-05-04] MEDS: GABAPENTIN 300 MG CAPSULE PO SCH (08:59)
[2019-05-04] MEDS: amLODIPine 5 MG TABLET PO SCH (08:59)
[2019-05-04] MEDS: DOCUSATE SODIUM 100 MG CAPSULE PO SCH (09:00)
[2019-05-04] MEDS: INSULIN REGULAR 100 UNIT/ML SUBCUT SCH (09:00)
[2019-05-04] MEDS: FERROUS SULFATE 325 MG TABLET PO SCH (09:00)
[2019-05-04] MEDS: BACLOFEN 10 MG TABLET PO SCH (09:00)
[2019-05-04] MEDS: PANTOPRAZOLE 40 MG TABLET PO SCH (09:00)
[2019-05-04] MEDS: CHLORHEXIDINE 0.12% ORAL RINSE 60 ML BOTTLE SWISH/SPIT SCH (09:02)
[2019-05-04] MEDS: ASPIRIN EC 81 MG TABLET PO SCH (09:02)
[2019-05-04] MEDS: LEVOFLOXACIN 500 MG TABLET PO SCH (10:39)
== END 2019-05-04 13:26 | disposition home health service (06) | DRG 220 ==
LOC: N.TELEN 08:33 → N.CVR 04-27 08:03 → N.TELES 04-28 10:05
PROC: CABGAVR (ICD-10-PCS; 2019-04-27 06:46)